=== PATIENT | male | born 1985 | race Caucasian/White ===

== ENCOUNTER 2021-01-20 09:50 | Emergency (ER) | payer BC, SELFPAY ==
[2021-01-20 09:58] VITALS: BP 163/101; PULSE 92; RESP 24; TEMP 36.9; O2SAT 100
--- NOTE | 2021-01-20 10:04 | ECG_ITS ---
Measurements Intervals [place] Rate: 80 P: 62 RI: 193 QRS: 89 QRSD: 113 T: 51 QT: 371 QTc: 430 Interpretive Statements SINUS RHYTHM WITH SINUS ARRHYTHMIA INTRAVENTRICULAR CONDUCTION DELAY BORDERLINE ECG Electronically Signed On 01-20-2021 12:01:12 CAMPAIGN ASSISTANT by Mendez Murillo D.O.
--- NOTE | 2021-01-20 10:06 | ED.CHESTPAIN ---
HPI - Chest Pain General Chief Complaint: Chest Pain Stated Complaint: HEART RACING Time Seen by Provider: 01/20/21 10:07 Source: patient Mode of arrival: ambulatory Limitations: no limitations History of Present Illness HPI narrative: Marysol Sarmiento is a 35 yo male with a PMH of depression and anxiety, panic attacks, who comes to the [facility] complaining of rapid heartbeat and concern about reaction to fluconazole. He is taken single dose of fluconazole for yeast infection. Evaluation he is hypertensive, complaining of midsternal pain a 5 out of 10 , EKG was done. Patient has a long history of anxiety and panic attacks that occur out of nowhere. Patient states that he started to feel anxious and shaky last night and thought it was getting better so he went to bed but is unable to sleep so he is got up was working on and was for his part-time job. He has been in treatment before for depression and anxiety; he has a long history of substance abuse but he has been clean and dry for 2 years and is taking only the medication that is prescribed for him. He completed treatment in out state treatment program 2 years ago and has been able to maintain sobriety . denies any caffeine use he does use Nicorette gum or lozenges; has not had any alcohol in 2 years He recently moved back to the area . his primary care physician less than 2 months ago and had blood work done which was all within normal limits, he had no recommendations in terms of changes in diet are physical activity; patient exercises 3 times a week; next appointment on Saturday with a new psychiatrist Related Data Home Medications Medication Instructions Recorded Confirmed albuterol sulfate 90 mcg INHALATION PRN 01/20/21 01/20/21 armodafinil 250 mg PO TID 01/20/21 01/20/21 buprenorphine-naloxone 1 film SUBLINGUAL BID 01/20/21 01/20/21 fluconazole 150 mg PO ONCE 01/20/21 01/20/21 gabapentin 400 mg PO TID PRN 01/20/21 01/20/21 sumatriptan succinate 50 mg PO PRN PRN 01/20/21 01/20/21 Allergies Allergy/AdvReac Type Severity Reaction Status Date / Time PROCHLORPERAZINE EDISYLATE Allergy Rash Uncoded 01/20/21 10:11 PROCHLORPERAZINE MALEATE Allergy Rash Uncoded 01/20/21 10:11 Review of Systems Review of Systems: Narrative: CONSTITUTIONAL: Denies fever, chills, sweats. EYES: Denies visual changes, redness, discharge. ENT: Denies rhinorrhea, congestion, sore throat, otalgia. CARDIOVASCULAR: Denies chest , palpitations, edema. RESPIRATORY: Denies dyspnea, wheezing, cough GASTROINTESTINAL: Denies abdominal pain, nausea, vomiting, diarrhea. GENITOURINARY: Denies dysuria, hematuria, abnormal discharge SKIN: Denies rash or itching. NEUROLOGIC: Denies numbness, or focal weakness. PSYCHIATRIC: Very anxious is shaking. [facility] Past Medical History Medical History ADHD Anxiety Depression Migraine Substance use disorder Social History Social History (Updated 01/20/21 @ 10:46 by Elaine Garcia CNP) Smokeless tobacco user: other Additional smoking assessment comments: Uses nicotine lozengesmultiple times a day Alcohol intake: former Substance use: former Occupation/Education: other Comments At time of signature, I agree with nursing past medical, surgical, social and family history. There is no relevant family history pertinent to the presenting complaint. Patient has of PCP and had elevated blood pressure at this visit. He called his physician the next few days but elevation in vital signs could be attributed to the severity of his anxiety on presentation; did improve over the time he was here Exam Narrative: Exam Narrative: GENERAL: This is a well-nourished, well-developed patient, in moderate distress. Hands shaking cluching fist. HEAD: normocephalic, atraumatic. EYES: Sclera clear/white. Vision is grossly intact. EARS: External ears normal. Hearing grossly intact. NOSE: External nose normal without
[2021-01-20 10:09] VITALS: BP 163/101; PULSE 92; RESP 24; TEMP 36.9; O2SAT 100
[2021-01-20 10:42] VITALS: BP 143/93; PULSE 81; RESP 16; O2SAT 100
[2021-01-20 10:45] VITALS: BP 143/93; PULSE 81; RESP 16
== END 2021-01-20 10:56 | disposition home or self-care (01) ==
PROVIDERS: Emergency Provider Nurse Practitioner; PCP Internal Medicine
DX: R07.89 Other chest pain (principal); F41.9 Anxiety disorder, unspecified
CPT/HCPCS: 93005; 99203; G0463

== ENCOUNTER 2021-09-15 14:48 | Emergency (ER) | payer BC, SELFPAY ==
[2021-09-15 14:58] VITALS: BP 157/106; PULSE 88; RESP 18; TEMP 37.2; O2SAT 100
--- NOTE | 2021-09-15 15:34 | ED.GENADULT ---
HPI - General Adult General Chief complaint: Unspecified Stated complaint: Mental Confusion Time Seen by Provider: 09/15/21 15:20 Source: patient, RN notes reviewed and old records reviewed Mode of arrival: ambulatory Limitations: no limitations History of Present Illness HPI narrative: 35 year old male who presents to express care with complaints of feeling tired with body aches and low grade fevers off and on intermittently since the 04 of September. Patient states he has had no sore throat, no acute nasal drainage, cough, denies any feelings of shortness of breath. Patient states that he has taken 3 COVID tests himself which are all negative. He states that he does have history of anxiety and depression and sees psychiatrist at [facility] and is in process of establishing care with new PCP since his old one retired. He states that his psychiatrist told him to go to express care and get checked our. Patient is afebrile, respirations are even and nonlabored with no tachypnea or any retractions noted. patient states past history of drug abuse but reports that he has been clean for over 2 years and is on Suboxone as treatment for his depression. Patient states that he feels foggy in his head trouble keeping train of though forgets easily. Patient denies any dizziness, headaches, feelings of numbness or tingling, is anxious. MD complaint: bodyaches, low grade fever,fatigue Onset (ago): day(s) (since September 04.) Related Data Home Medications Medication Instructions Recorded Confirmed albuterol sulfate 90 mcg INHALATION PRN 01/20/21 01/20/21 armodafinil 250 mg PO TID 01/20/21 01/20/21 buprenorphine-naloxone 1 film SUBLINGUAL BID 01/20/21 01/20/21 fluconazole 150 mg PO ONCE 01/20/21 01/20/21 gabapentin 400 mg PO TID PRN 01/20/21 01/20/21 sumatriptan succinate 50 mg PO PRN PRN 01/20/21 01/20/21 Allergies Allergy/AdvReac Type Severity Reaction Status Date / Time PROCHLORPERAZINE EDISYLATE Allergy Rash Uncoded 01/20/21 10:11 PROCHLORPERAZINE MALEATE Allergy Rash Uncoded 01/20/21 10:11 Review of Systems Review of Systems: CONSTITUTIONAL: Reports some low grade fever, chills, or sweats. EYES: Denies visual changes, redness, or discharge. ENT: Denies rhinorrhea, congestion, sore throat, or otalgia. CARDIOVASCULAR: Denies chest pain, palpitations, or edema. RESPIRATORY: Denies cough or dyspnea. GASTROINTESTINAL: Denies abdominal pain, nausea, vomiting, or diarrhea. GENITOURINARY: Denies dysuria or hematuria. SKIN: Denies rash or itching. MUSCULOSKELETAL: Denies back pain, joint pain,reports body aches. NEUROLOGIC: Denies headache, numbness, or weakness.reports mental foggy and forgetful PSYCHIATRIC: Positive for history of anxiety or depression. All systems reviewed & are unremarkable except as noted in HPI and below PMFSH Past Medical History Medical History (Updated 09/16/21 @ 13:11 by Shawna Solorio NP) ADHD Anxiety Depression Migraine Soft tissue lesion of knee region removed benign Substance use disorder Surgical History Surgical History (Updated 09/16/21 @ 13:11 by Shawna Solorio NP) Hx of appendectomy Family History Family History (Updated 09/16/21 @ 13:09 by Shawna Solorio NP) Father Heart disease Social History Social History Smokeless tobacco user: other Additional smoking assessment comments: Uses nicotine lozengesmultiple times a day Alcohol intake: former Substance use: former Comments At time of signature, agree with nursing past medical, surgical, social and family history. There is no relevant family history pertinent to the presenting complaint Exam Narrative: GENERAL: Well-appearing, well-nourished, and in no acute distress. HEAD: Normocephalic, atraumatic. EYES: PERRLA and EOMI. ENT: Nares clear, no rhinorrhea or epistaxis. Mucous membranes moist.TM's normal with some cerumen noted, throat pink with no lesions or exudates,
== END 2021-09-15 16:34 | disposition home or self-care (01) ==
PROVIDERS: Emergency Provider Registered Nurse
DX: B34.9 Viral infection, unspecified (principal); Z20.822 Contact with and (suspected) exposure to COVID-19
CPT/HCPCS: 87426; 87804; 99213; C9803; G0463

== ENCOUNTER 2024-08-07 21:21 | Emergency (ER) | payer BC, SELFPAY ==
--- NOTE | ~2024-08-07 | XR_ITS ---
EXAMINATION: XR chest 2V DATE: 08/07/2024 21:58 INDICATION: Chest pain. Palpitations. TECHNIQUE: Frontal and lateral views of the chest were obtained. COMPARISON: None. FINDINGS: There is no pneumonia, pleural effusion, or pneumothorax. The heart size is normal. There i s mild chronic anterior wedging of multiple vertebral bodies. IMPRESSION: 1. No acute cardiopulmonary disease. Reviewed, dictated and finalized at location A.
--- NOTE | 2024-08-07 21:24 | ECG_ITS ---
Test Date: 2024-08-07 21:32:38 Measurements Intervals [place] Rate: 113 P: 17 CA: 176 QRS: 71 QRSD: 109 T: 30 QT: 250 QTc: 343 Interpretive Statements SINUS TACHYCARDIA INCOMPLETE RIGHT BUNDLE BRANCH BLOCK NONSPECIFIC T-WAVE ABNORMALITY- INFERIOR LEADS BASELINE ARTIFACT- I, II ,III, AVR, AVL, V1-V2 ABNORMAL ECG No previous ECG available for comparison Electronically Signed On 08-08-2024 06:44:51 CDT by Mendez Murillo D.O.
[2024-08-07 21:27] VITALS: BP 154/108; PULSE 122; TEMP 36.9; O2SAT 100
[2024-08-07 21:48] LABS: Basophils Absolute Auto 0.1 K/mm3 (0.0-0.1); Basophils Percent Auto 0.8 % (0.2-1.2); Eosinophils Absolute Auto 0.5 K/mm3 (0-0.3); Eosinophils Percent Auto 5.1 % (0-4.4); Hematocrit 38.2 % (42.0-52.0); Hemoglobin 13.2 g/dL (14.0-18.0); Immature Granulocyte Absolute 0.03 K/mm3 (0.00-0.031); Immature Granulocyte Percent A 0.3 % (0-0.5); Lymphocytes Absolute Auto 2.93 K/mm3 (0.9-3.2); Lymphocytes Percent Auto 29.4 % (18.3-44.2); Mean Corpuscular HGB Conc 34.6 g/dl (32-36); Mean Corpuscular Hemoglobin 30.9 pg (26-34); Mean Corpuscular Volume 89.5 fl (80-100); Mean Platelet Volume 10.6 fl (7.4-10.4); Monocytes Absolute Auto 0.6 K/mm3 (0.1-0.6); Monocytes Percent Auto 6.2 % (2.6-8.5); Neutrophils Absolute Auto 5.8 K/mm3 (1.3-6.7); Neutrophils Percent Auto 58.2 % (45.5-73.1); Platelet Count Result 221 k/mm3 (150-375); Red Blood Count 4.27 M/mm3 (4.6-6.20); Red Cell Distribution Width 12.3 % (11.5-14.5)
[2024-08-07 21:55] LABS: Alanine Aminotransferase 37 U/L (6-50); Albumin Level 4.7 g/dL (3.5-5.1); Alkaline Phosphatase 64 U/L (38-126); Anion Gap 15 mmol/L (4-12); Aspartate Amino Transferase 30 U/L (17-59); Bilirubin,Total 0.8 mg/dL (0.2-1.3); Blood Urea Nitrogen 38 mg/dL (9-20); Calcium 9.4 mg/dL (8.4-10.2); Carbon Dioxide 25 mmol/L (22-30); Chloride 93 mmol/L (98-107); Estimated CRCL calculation 57 ml/min; Estimated Glomerular Filt Rate 45; Glucose 116 mg/dL (65-110); Lipase 287 U/L (23-300); Potassium 3.2 mmol/L (3.4-5.0); Sodium 133 mmol/L (137-145)
[2024-08-07 21:58] LABS: Prothrombin Time 13.9 Seconds (11.1-14.7)
[2024-08-07 22:00] LABS: Partial Thromboplastin Time 27.6 Seconds (22.3-36.8)
[2024-08-07 22:07] LABS: Troponin I < 0.012 ng/mL (0.000-0.034)
== END 2024-08-08 01:03 | disposition left against medical advice (07) ==
LOC: ANHED 08-08 01:02
PROVIDERS: Emergency Provider Student in an Organized Health Care Education/Training Program
DX: R00.2 Palpitations (principal); F41.9 Anxiety disorder, unspecified
CPT/HCPCS: 36415; 71046; 80053; 83690; 84484; 85025; 85610; 85730; 93005; 99199